=== PATIENT | female | born 1945 | race Caucasian/White ===

== ENCOUNTER 2016-10-31 15:01 | Emergency (ER) | payer OTHER ==
[2016-10-31] MEDS ORDERED: HYDROcodone-APAP 5 MG -325 MG TABLET PO ONE ×2 (15:16→15:19)
--- NOTE | 2016-10-31 17:29 | DI ---
RIGHT ANKLE, 10/31/2016 3:15 PM: Clinical History: Injury. The patient fell. Previous Exam: None at this facility. 3 views are submitted. The ankle mortise is intact. There is no fracture of the tibia or the fibula. There is a severely comminuted intra-articular fracture of the calcaneus. Fractures include the poste rior half of the calcaneus along with fracture lines that extend into the middle and anterior subtala r joints. No other fractures are identified. Reading: Severely comminuted intra-articular fracture of the calcaneus. Consider a CT scan of the calcaneus to provide further detail of the extent of the fractures.
[2016-10-31 17:32] VITALS: RESP 18; TEMP 98
--- NOTE | 2016-10-31 23:22 | PDOC ---
Fall HPI - General Chief Complaint: Lower Extremity Problem/Injury Stated Complaint: injuried right ankle Date Seen by Provider: 10/31/16 Time Seen by Provider: 15:05 Source: POSITIVE: Patient Exam Limitations: POSITIVE: No limitations Nurse's Notes Reviewed & Considered: Yes - History of Present Illness Initial Comments: The patient is a 71-year-old female who is evaluated with right foot and ankle pain after a fall. She states that she was up on a step stool doing some work on her home when she fell. She states that she is not exactly sure how she landed however she did injure her right foot. She also hit the back of her right leg. She did not hit her head and denies any loss of consciousness. She did hit her right forearm and has some mild bruising. She states that she is on Plavix and does bruise easily. Her main complaint at this time his right foot and ankle pain. She states that when she attempted to bear weight she felt some grinding in her foot. She does have a prior history of fracture to the right foot when she dropped a heavy piece of metal on it for 5 years ago. This was treated nonoperatively. She denies any other associated complaints at this time. Have you received a tetanus shot in the past 10 years?: Unknown - Patient Home Medications Home Medications: Home Medications Acetaminophen [Tylenol] 325 mg PO PRN tab 11/09/12 Clopidogrel [Plavix] 75 mg PO DAILY #0 tablet 02/03/14 Magnesium 250 mg PO QD tab 10/31/14 Potassium 99 mg PO QD tab 10/31/14 Ubidecarenone [Coq-10] 60 mg PO QD cap 10/31/14 Vitamin B Complex 1 each PO QD tab 06/05/15 Cholecalciferol (Vitamin D3) [Vitamin D3] 2,000 unit PO QD #0 cap 02/06/16 Citalopram Hydrobromide [Citalopram Hbr] 1 unit PO DAILY #90 tab 04/29/16 Hydrochlorothiazide 1 unit PO DAILY #90 tab 04/29/16 Simvastatin 1 unit PO DAILY #90 tab 04/29/16 Alprazolam 1 unit PO TID PRN #90 tab 05/01/16 Benzonatate [Tessalon Perle] 1 unit PO TID PRN #40 cap 06/30/16 HYDROcodone/APAP 5/325 Tab [Merrill 5/325 Tab] 1 - 2 each PO Q6H PRN #30 tablet - Patient Allergies Allergies/Adverse Reactions: Allergies Allergy/AdvReac Type Severity Reaction Status Date / Time Penicillins Allergy Intermediate HIVES Verified 10/31/16 15:13 Past Medical History - heen HEENT History: Cataracts Cardiovascular History: Hypertension Respiratory History: Denies History Gastrointestinal History: Denies History Genitourinary History: Denies History Endocrine History: Denies History Musculoskeletal History: Other (please comment) Prosthesis or Implant: No Additional Musculoskeletal History: CHRONIC NECK PAIN Neurological History: CVA Additional Neurological History: HEMORRHAGIC 2013 Blood Disorders: Denies History Psychiatric History: Anxiety Disorders History of Sexually Transmitted Diseases: No LMP: 1430 Cancer History: Denies History In Past Year Been Physically Harmed or Verbally Threatened: No History of MDRO: No History of Other Communicable Diseases: No Tobacco Use: Never Smoker Alcohol Use: Rarely Type of alcohol normally used: Wine Substance Use Type: None Previous Surgical History: Yes Type / Date of Surgery: MECCA CATARACTS. MECCA CARPAL TUNNEL. CAROTID ARTERY Anesthesia Reactions: No Significant Family History: No pertinent family hx, Cancer Additional Family History: mother, father, brother of cancer. another brother cardiovascular. another brother had ms Past Medical History Reviewed: Reviewed - No Changes ROS - Limitations ROS Limitations: No Limitations (Review of systems otherwise noncontributory) Fall Physical Exam - General Appearance General Appearance: POSITIVE: Alert, Cooperative, No Acute Distress - HEENT HEENT: POSITIVE: Head Inspection Nml - Neck Neck: POSITIVE: Painless ROM, Trachea Midline - Respiratory / CVS Respiratory / CVS: POSITIVE: Breath Sounds Normal, No Respiratory Distress, Heart Sounds Normal, Regular Rate/Rhythm Peripheral Pulses: Dorsalis-pedis (R): 2+, Dorsalis-pedis (L): 2+ - Abdomen Abdomen: Soft: (All Quadrants), Denies Tenderness: (All Quadrants), No Distention: (All Quadrants) - Neuro / Psych Neuro / Psych: POSITIVE: Oriented X3, Motor Normal, Sensation Normal - Back Back: POSITIVE: Normal Inspection - Extremities Additional Extremities Details: Examination of the right foot and ankle does reveal swelling and tenderness over the medial and lateral malleolus as well as some early ecchymosis extending down towards her heel, she does have a good dorsalis pedis pulse in the right foot a normal sensation, she does have some bruising on her left leg posteriorly with a superficial abrasion behind her left knee, there is no bony tenderness and good range of motion, she has some mild bruising on her right forearm is well with no bony tenderness or deformity. Fall Progress - Results Reviewed by me Xrays/CTs/US Reviewed by me: Yes Discussed with Radiologist: Yes Radiology Findings: X-ray of the right ankle reveals a comminuted fracture of the calcaneus - Patient's Progress MDM / ED Course: Shortly after arrival the patient did receive Merrill by mouth for pain. X-ray was obtained revealing a comminuted calcaneus fracture. The patient was discussed with Dr. Cat who had reviewed the patient's x-rays as well. He recommended bulky splint and orthopedic follow-up. She was placed in a bulky posterior splint. She was given crutches and advised to be nonweightbearing. She is advised of the importance of keeping her foot iced and elevated to reduce swelling. She was prescribed Merrill 5/325 which she can take one or 2 every 6 hours as needed for pain. She is to return to the emergency room if increased pain or numbness, worsening or change in symptoms. She will follow- up with Dr. Cat. - Consult Counseled: POSITIVE: Patient, Family, RE: Radiology Results, RE: DX, RE: Need for F/U Patient Care Time - Estimated PCT Patient Care Time (In Minutes): 25 Vital Signs - VS Reviewed Vital Signs Reviewed: Yes Discharge Clinical Impression: Calcaneus fracture, right Discharge Disposition: Discharged to Home Condition: Stable Prescriptions / Orders: HYDROcodone/APAP 5/325 Tab [Merrill 5/325 Tab] 1 - 2 each PO Q6H PRN #30 tablet PRN Reason: Pain Patient Instructions Given at Discharge: Calcaneal Fracture (ED) Additional Instructions: There is a fracture in the heel bone of your right foot. He will need to continue to ice and elevate the right foot and ankle is much as possible over the next several days to help reduce swelling. You should not bear weight at all on the right foot. You have been given crutches to assist with ambulation. You have been prescribed Merrill 5/325 which he can take one or 2 every 6 hours as needed for pain. Return to the emergency room if increased pain or numbness , worsening or change in symptoms. Follow-up with orthopedic surgery (Dr. Cat), call on Thursday to schedule follow-up. Follow Up With: SLY NEELY [Primary Care Provider] -
== END 2016-10-31 16:25 | disposition home or self-care (01) ==
LOC: ER 15:01
DX: S92.061A Displaced intraarticular fracture of right calcaneus, initial encounter for closed fracture (principal); S50.11XA Contusion of right forearm, initial encounter; S80.12XA Contusion of left lower leg, initial encounter; S80.212A Abrasion, left knee, initial encounter; W17.89XA Other fall from one level to another, initial encounter
CPT/HCPCS: 73610; 99283

== ENCOUNTER → 2016-11-03 | Outpatient (CLI) | payer OTHER | LOC: MMPC 10:00 | PROVIDERS: ATTEND Orthopaedic Surgery | DX: S92.011A Displaced fracture of body of right calcaneus, initial encounter for closed fracture (principal); W11.XXXA Fall on and from ladder, initial encounter | CPT/HCPCS: 99203; G0463 ==

== ENCOUNTER → 2016-12-29 | Outpatient (CLI) | payer OTHER ==
--- NOTE | 2016-12-29 14:44 | DI ---
XR CALCANEUS MIN 2VW,12/29/2016 9:15 AM: Clinical History: Right heel pain Previous Exam: October 31, 2016 Findings: AP and lateral views of the right calcaneus are obtained, and demonstrate sclerosis and new bone form ation of the right calcaneus when compared with the prior exam. 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 Impression: Healing comminuted fracture of the right calcaneus.
== END ==
LOC: ORTHO 09:13
PROVIDERS: ATTEND Orthopaedic Surgery
DX: S92.001D Unspecified fracture of right calcaneus, subsequent encounter for fracture with routine healing (principal)
CPT/HCPCS: 73650